=== PATIENT | male | born 1975 | race African-American/Black ===

== ENCOUNTER 2021-10-17 20:58 | Emergency (ER) | payer OTHER ==
[2021-10-17 21:25] LABS: EOSINOPHIL 2.4 % (0-5); HCT 38.7 % (42.0-52.0); LYMPHOCYTE 36.8 % (15-48); MCH 30.4 pg (25.0-31.0); MCHC 33.6 g/dL (32.0-36.0); MCV 90.4 fL (78.0-100.0); MONOCYTE 7.1 % (0-12); MPV 9.1 fL (6.0-9.5); NEUTROPHIL 52.5 % (41-80); NRBC 0; PLT 351 K/uL (150-400); RBC 4.28 M/uL (4.70-6.00); RDW 12.5 % (11.5-14.0)
[2021-10-17 21:32] LABS: BILIRUBIN NEGATIVE (NEGATIVE); BLOOD 3+ Ery/uL (NEGATIVE); CLARITY CLEAR (CLEAR); COLOR YELLOW (YELLOW); GLUCOSE (U) NORMAL (NORMAL); LEUKOCYTES NEGATIVE Leu/uL (NEGATIVE); NITRITE NEGATIVE (NEGATIVE); PROTEIN NEGATIVE (NEGATIVE); SPECIFIC GRAVITY 1.015 (1.001-1.030); UROBILINOGEN 0.2 mg/dL (0.2-1.0)
[2021-10-17 21:46] LABS: ALBUMIN 4.1 g/dL (3.4-5.0); BILIRUBIN - TOTAL 0.3 mg/dL (0.2-1.0); BUN/CREAT RATIO (CALC) 7.8 RATIO; CREATININE 1.16 mg/dL (0.67-1.17); GLOBULIN (CALCULATION) 4.1 g/dL; POTASSIUM 3.8 mmol/L (3.5-5.1); TOTAL PROTEIN 8.2 g/dL (6.4-8.2)
[2021-10-17 21:47] LABS: URINARY RBC 20-50; URINARY WBC RARE
[2021-10-17] MEDS ORDERED: NORCO 5-325 TA1 EACH PO (23:00)
== END 2021-10-17 23:35 | disposition home or self-care (01) ==
LOC: FER 20:58
PROVIDERS: Emergency Medicine
DX: N13.2 Hydronephrosis with renal and ureteral calculous obstruction (principal); I10 Essential (primary) hypertension; Z28.310 Unvaccinated for COVID-19
CPT/HCPCS: 36415; 80053; 81001; 82150; 83690; 85025; J1170; J1885; J2405; J7030